=== PATIENT | female | born 1980 | race Caucasian/White ===

== ENCOUNTER → 2017-07-25 | Outpatient (CLI) | payer OTHER ==
[~2017-07-25] MED LIST: ACID CONTROL75 MG PO; ALBUTEROL2.5 MG/31 INH; AUGMENTIN 875875 MG PO; BENTYL 20 MG TA20 M1 PO; CALCIUM 500 +1 EAC5 PO; CALCIUM 600 +1 EAC1 PO; CEFPODOXIME PR200 M1 PO; CELEXA 20 MG TA20 M1 PO; CELEXA 20 MG TA20 MG PO; CLARITIN10 MG PO; CYCLOBENZAPRINE5 MG PO; FIBER TABS625 MG PO; HYDROCODON-ACE1 EAC7 PO; HYDROCODONE-IB1 EACH PO; IBUPROFEN 600600 M1 PO; IBUPROFEN 800800 M1 PO; IRON; IRON325 PO; MULTIVITAMINS1 EAC7; NORCO 5-325 TA1 EACH PO; ORTHO TRI-CYCL1 EACH PO; OXYCODONE HCL 55 MG PO; OXYCODONE HCL10 MG; OXYCONTIN10 M1 PO; PERI-COLACE TA1 EACH PO; PHENERGAN 25 MG25 M1 PO; PREDNISONE50 MG PO; PRILOSEC40 MG PO; PROTONIX40 M1 PO; PROVIDA OB CAP1 EACH PO; PULMICORT0.25 MG/3 INH; ROBAXIN 750 MG750 M1 PO; SINGULAIR 10 MG10 M1 PO; SYMBICORT160 MCG/4. INH; TESSALON PERLE100 MG PO; TRAMADOL 50 MG50 MG; TRI-SPRINTEC1 EACH PO; TUMS PO; UNICOMPLEX M TA1 TA1 PO; URSO FORTE500 M1 PO; URSODIOL300 MG PO; VALTREX1000 MG PO; VENTOLIN HFA INH8 GM INH; VICOPROFEN 2001 EAC1 PO; XANAX; XANAX 0.5 MG0.5 MG PO; ZANAFLEX4 MG PO; ZANTAC 150MG T150 M1 PO; ZYRTEC10 MG
[2017-07-25 08:18] LABS: ABSOLUTE BASOPHILS 0.2 thou/uL (0.0-0.2); ABSOLUTE LYMPHOCYTES 3.8 thou/uL (0.8-5.3); ABSOLUTE MONOCYTES 0.8 thou/uL (0.0-1.2); ABSOLUTE NEUTROPHILS 5.7 thou/uL (1.6-8.1); BASOPHILS 2.2 %; EOSINOPHILS 0.3 %; HEMATOCRIT 36.3 % (37.0-47.0); HEMOGLOBIN 11.9 gm/dL (12.0-15.0); LYMPHOCYTES 36.1 %; MCH 25.5 pg (26.0-34.0); MCHC 32.9 g/dL (28.0-37.0); MCV 77.7 fL (80.0-100.0); MONOCYTES 7.7 %; MPV 7.6 fl. (7.2-11.1); NUCLEATED RBCS 0 /100WBC; PLATELET COUNT* 305 thou/uL (150-400); POLYS 53.7 %; RBC 4.67 mil/uL (4.20-5.00); WBC 10.6 thou/uL (4.0-11.0)
[2017-07-25 08:35] LABS: ALBUMIN 3.5 g/dL (3.4-5.0); CALCIUM 8.5 mg/dL (8.5-10.1); CREATININE 0.9 mg/dL (0.6-1.3); POTASSIUM 3.1 mmol/L (3.5-5.1); TOTAL BILIRUBIN 0.1 mg/dL (<0.1-1.0); TOTAL PROTEIN 7.5 g/dL (6.4-8.2)
[2017-07-25 09:47] LABS: ESR (SEDRATE) 20 mm/hr (0-20)
== END ==
LOC: M.LAB 08:01
PROVIDERS: Internal Medicine Gastroenterology
DX: K74.3 Primary biliary cirrhosis (principal)

== ENCOUNTER 2017-11-24 03:56 | Emergency (ER) | payer OTHER ==
[~2017-11-24] VITALS: Ht 162.6 cm; Wt 117.9 kg
[~2017-11-24 03:56] MED LIST changes: -ALBUTEROL2.5 MG/31 INH; -CALCIUM 500 +1 EAC5 PO; -CEFPODOXIME PR200 M1 PO; -OXYCONTIN10 M1 PO; -PREDNISONE50 MG PO; -PROTONIX40 M1 PO; -PULMICORT0.25 MG/3 INH; -SYMBICORT160 MCG/4. INH; -TESSALON PERLE100 MG PO; -TUMS PO; -VALTREX1000 MG PO; -VENTOLIN HFA INH8 GM INH; -ZANAFLEX4 MG PO; -ZYRTEC10 MG
[2017-11-24] MEDS ORDERED: PULMICORT0.25 MG/3 INH (05:16)
[2017-11-24] MEDS ORDERED: PREDNISONE50 MG PO (05:16)
[2017-11-24 05:34] VITALS: BP 133/75
[2018-05-05] MEDS ORDERED: PROPRANOLOL 1010 MG PO (12:29)
== END 2017-11-24 05:35 | disposition home or self-care (01) ==
LOC: M.ERS 03:56
DX: J45.901 Unspecified asthma with (acute) exacerbation (principal); K21.9 Gastro-esophageal reflux disease without esophagitis; Z86.2 Personal history of diseases of the blood and blood-forming organs and certain disorders involving the immune mechanism; Z88.1 Allergy status to other antibiotic agents; Z88.6 Allergy status to analgesic agent; Z88.8 Allergy status to other drugs, medicaments and biological substances

== ENCOUNTER 2017-11-26 17:52 | Emergency (ER) | payer OTHER ==
[~2017-11-26] VITALS: Ht 162.6 cm; Wt 117.9 kg
[~2017-11-26 17:52] MED LIST changes: +PREDNISONE50 MG PO; +PULMICORT0.25 MG/3 INH
[2017-11-26] MEDS ORDERED: TUMS PO (18:04)
[2017-11-26] MEDS ORDERED: ALBUTEROL2.5 MG/31 INH (18:04)
[2017-11-26] MEDS ORDERED: VENTOLIN HFA INH8 GM INH (18:04)
[2017-11-26] MEDS ORDERED: CALCIUM 500 +1 EAC5 PO (18:05)
[2017-11-26 18:35] LABS: ABSOLUTE BASOPHILS 0.1 thou/uL (0.0-0.2); ABSOLUTE LYMPHOCYTES 1.7 thou/uL (0.8-5.3); ABSOLUTE MONOCYTES 0.3 thou/uL (0.0-1.2); ABSOLUTE NEUTROPHILS 8.7 thou/uL (1.6-8.1); BASOPHILS 0.6 %; HEMATOCRIT 33.8 % (37.0-47.0); HEMOGLOBIN 11.1 gm/dL (12.0-15.0); LYMPHOCYTES 16.1 %; MCH 25.9 pg (26.0-34.0); MCHC 32.9 g/dL (28.0-37.0); MCV 78.7 fL (80.0-100.0); MONOCYTES 2.5 %; MPV 8.1 fl. (7.2-11.1); NUCLEATED RBCS 0 /100WBC; PLATELET COUNT* 265 thou/uL (150-400); POLYS 80.8 %; RBC 4.29 mil/uL (4.20-5.00); RDW-CV 15.9 % (10.5-14.5); WBC 10.8 thou/uL (4.0-11.0)
[2017-11-26 18:37] LABS: URINE BILIRUBIN NEGATIVE (Negative); URINE BLOOD NEGATIVE (Negative); URINE CLARITY CLEAR; URINE COLOR YELLOW; URINE GLUCOSE-RANDOM NEGATIVE (Negative); URINE KETONES NEGATIVE (Negative); URINE LEUKOCYTES-REFLEX NEGATIVE (Negative); URINE NITRITE-REFLEX NEGATIVE (Negative); URINE PROTEIN NEGATIVE (Negative); URINE SPECIFIC GRAVITY <= 1.005 (1.005-1.030); URINE UROBILINOGEN 0.2 E.U./dl (0.2-1.0)
[2017-11-26 18:45] LABS: AMP/METHAMP Negative (Negative); ANION GAP 11 mmol/L (7-16); BARBITURATES Negative (Negative); BENZODIAZEPINES POSITIVE (Negative); BUN 12 mg/dL (7-18); CALCIUM 9.3 mg/dL (8.5-10.1); CHLORIDE 104 mmol/L (98-107); CO2 26 mmol/L (21-32); COCAINE Negative (Negative); CREATININE 0.9 mg/dL (0.6-1.3); GLUCOSE 126 mg/dL (70-99); METHADONE Negative (Negative); OPIATES Negative (Negative); PCP Negative (Negative); POTASSIUM 3.9 mmol/L (3.5-5.1); SODIUM 141 mmol/L (136-145); THC Negative (Negative)
[2017-11-26 18:49] LABS: APTT 24.7 Seconds (25.0-31.3); INR 1.1; PROTIME 10.3 Seconds (9.20-11.50)
[2017-11-26 18:52] LABS: ALBUMIN 3.5 g/dL (3.4-5.0); ALKALINE PHOSPHATASE 135 U/L (46-116); SGOT 52 U/L (15-37); SGPT 67 U/L (30-65); TOTAL BILIRUBIN 0.3 mg/dL (<0.1-1.0); TOTAL PROTEIN 7.7 g/dL (6.4-8.2); TROPONIN-I LEVEL <0.06 ng/mL (<0.06)
[2017-11-26] MEDS ORDERED: IBUPROFEN 800800 M1 PO (20:14)
[2017-11-26 20:21] VITALS: BP 144/77
--- NOTE | 2017-11-27 14:59 | EKG ---
[place] [address] ELECTROCARDIOGRAM REPORT Name: EDELMIRA NICHOLSON Room: [facility]#: [id number] Admission: 11/26/17 Attend Phys: Discharge: 11/26/17 Date of : 84 Report #: [id number] THIS REPORT FOR: //name// [facility] ED Test Date: 2017-11-26 Test Time: 17:58:07 Pat Name: EDELMIRA NICHOLSON Department: Room: Gender: F Inspector Wire Rope: JULIENNE : 1980 Requested By: Kianna Grimes Order Number: [id number] MD: Fredi Hartman Measurements Intervals [place] Rate: 55 P: 50 ID: [id number] QRS: 21 QRSD: 120 T: 17 QT: 428 QTc: 410 Interpretive Statements Sinus rhythm Nonspecific intraventricular conduction delay No previous ECG available for comparison Electronically Signed On 11-27-2017 14:59:10 CDT by Fredi Hartman [email or web address] <ELECTRONICALLY SIGNED> By: Fredi Hartman MD, [facility] 11/27/17 1459 1758 1758 Fredi Hartman MD, FACC /EPI
[2018-05-05] MEDS ORDERED: PROPRANOLOL 1010 MG PO (12:29)
== END 2017-11-26 20:22 | disposition home or self-care (01) ==
LOC: M.ERS 17:52
PROVIDERS: Nurse Practitioner Family
DX: R07.89 Other chest pain (principal); K21.9 Gastro-esophageal reflux disease without esophagitis; J45.909 Unspecified asthma, uncomplicated; Z86.2 Personal history of diseases of the blood and blood-forming organs and certain disorders involving the immune mechanism; Z88.8 Allergy status to other drugs, medicaments and biological substances; Z88.1 Allergy status to other antibiotic agents

== ENCOUNTER 2017-11-27 20:16 | Inpatient (IN) | payer OTHER ==
[~2017-11-27] VITALS: Ht 162.6 cm; Wt 129.3 kg
[~2017-11-27 20:16] MED LIST changes: +ALBUTEROL2.5 MG/31 INH; +CALCIUM 500 +1 EAC5 PO; +TUMS PO; +VENTOLIN HFA INH8 GM INH
[2017-11-27 20:28] VITALS: BP 172/98
[2017-11-27 21:23] LABS: HCO3 24.9 mmol/L (22.0-26.0); PCO2 33.4 mmHg (35.0-45.0); PO2 79.3 mmHg (75.0-100.0); pH 7.491 (7.340-7.450)
[2017-11-27 22:03] LABS: MAGNESIUM 1.9 mg/dL (1.8-2.4); TROPONIN-I LEVEL <0.06 ng/mL (<0.06)
[2017-11-27 23:30] VITALS: BP 175/88
[2017-11-27 23:45] VITALS: BP 170/85
[2017-11-28] MEDS ORDERED: SINGULAIR 10 MG10 M1 PO (00:07)
[2017-11-28] MEDS ORDERED: ZANAFLEX4 MG PO (00:08)
[2017-11-28 04:00] VITALS: BP 144/81
--- NOTE | 2017-11-28 05:20 | NUR ---
RECEIVED REPORT FROM KALYAN,RN AT 2345. PT ARRIVED FROM ER VIA GURNEY AT 2353. SPOUSE AT BEDSIDE. PT ORIENTED TO ROOM AND CALL LIGHT. VOICED NO CONCERNS THIS SHIFT. NURSING ASSESSMENT COMPLETED. PT EDUCATED ON IMPORTANCE OF BEING NPO FOR CARDIOLOGY CONSULT. PT VERBALIZED UNDERSTANDING. PT TRACING SB/SR THIS SHIFT WITH HR DROPPING DOWN TO LOW 40'S THIS SHIFT. HOURLY ROUNDING COMPLETED. CALL LIGHT WITHIN REACH.
--- NOTE | 2017-11-28 07:25 | NUR ---
CHANGE OF SHIFT BEDSIDE REPORT GIVEN PATIENT SEEN IN BED AND WATCHING TV ASSUMED PATIENT CARE
[2017-11-28 08:00] VITALS: BP 162/94
[2017-11-28 10:45] LABS: ABSOLUTE BASOPHILS 0.2 thou/uL (0.0-0.2); ABSOLUTE EOSINOPHILS 0.1 thou/uL (0.0-0.7); ABSOLUTE LYMPHOCYTES 3.7 thou/uL (0.8-5.3); ABSOLUTE NEUTROPHILS 8.7 thou/uL (1.6-8.1); BASOPHILS 1.3 %; EOSINOPHILS 0.4 %; HEMOGLOBIN 10.1 gm/dL (12.0-15.0); LYMPHOCYTES 27.2 %; MCH 25.9 pg (26.0-34.0); MCHC 32.4 g/dL (28.0-37.0); MCV 79.9 fL (80.0-100.0); MONOCYTES 7.5 %; MPV 8.7 fl. (7.2-11.1); NUCLEATED RBCS 0 /100WBC; PLATELET COUNT* 235 thou/uL (150-400); POLYS 63.6 %; RBC 3.88 mil/uL (4.20-5.00); RDW-CV 15.8 % (10.5-14.5); WBC 13.6 thou/uL (4.0-11.0)
[2017-11-28 10:54] LABS: ALBUMIN 3.1 g/dL (3.4-5.0); CALCIUM 8.3 mg/dL (8.5-10.1); CREATININE 0.9 mg/dL (0.6-1.3); POTASSIUM 3.5 mmol/L (3.5-5.1); TOTAL BILIRUBIN 0.3 mg/dL (<0.1-1.0); TOTAL PROTEIN 6.6 g/dL (6.4-8.2)
[2017-11-28 13:41] VITALS: BP 146/87
[2017-11-28 16:37] VITALS: BP 175/102
--- NOTE | 2017-11-28 16:38 | 2DMMODE ---
[place] [address] 2 D/M-MODE ECHOCARDIOGRAM Name: EDELMIRA NICHOLSON Room: [address] IN [facility]#: [id number] Admission: 11/28/17 Attend Phys: Unruly Flores Discharge: Date of : 84 Date of Service: 11/28/17 1638 Report #: [id number] THIS REPORT FOR: //name// APPROVED REPORT Study performed: 11/28/2017 11:00:25 EXAM: Comprehensive 2D, Doppler, and color-flow Echocardiogram Patient Location: In-Patient Room #: 230 Status: routine BSA: 2.25 HR: 59 bpm BP: 144/81 mmHg Rhythm: NSR Other Information Study Quality: Good Indications Bradycardia Chest Pain 2D Dimensions LVEF(%): 61.51 (>50%) IVSd: 12.80 (7-11mm) LVOT Diam: 19.99 (18-24mm) LVDd: 48.10 mm PWd: 10.53 (7-11mm) Ascending Ao: 31.07 (22-36mm) LVDs: 32.20 (25-40mm) Aortic Root: 28.26 mm Sauceda's LVEF: 61.51 % Volumes Left Atrial Volume (Systole) LA ESV Index: 34.70 mL/m2 Aortic Valve AoV Peak Matias.: 1.69 m/s AO Peak Gr.: 11.46 mmHg LVOT Max P.69 mmHg AO Mean Gr.: 6.11 mmHg LVOT Mean P.17 mmHg LVOT Max V: 1.63 m/s AO V2 VTI: 36.78 cm LVOT Mean V: 0.90 m/s ROLANDO (VTI): 2.75 cm2 LVOT V1 VTI: 32.23 [place] [address] 2 D/M-MODE ECHOCARDIOGRAM Name: EDELMIRA NICHOLSON Room: [address] IN ..#: [id number] Admission: 11/28/17 Attend Phys: Unruly Flores Discharge: Date of : 84 Date of Service: 11/28/17 1638 Report #: [id number] E/A Ratio: 1.44 MV Decel. Time: 169.92 ms MV E Max Matias.: 1.22 m/s MV PHT: 49.28 ms MVA (PHT): 4.46 cm2 TDI E/Lateral E': 8.13 E/Medial E': 10.17 Medial E' Matias.: 0.12 m/s Lateral E' Matias.: 0.15 m/s Pulmonary Valve PV Peak Matias.: 1.05 m/s PV Peak Gr.: 4.37 mmHg Tricuspid Valve TR Peak Gr.: 25.48 mmHg RVSP: 30.00 mmHg Left Ventricle The left ventricle is normal size. There is normal LV segmental wall motion. There is normal left ventricular wall thickness. Left ventricular systolic function is normal. The left ventricular ejection fraction is within the normal range. LVEF is 60%. The left ventricular diastolic function is normal. Right Ventricle The right ventricle is normal size. The right ventricular systolic function is normal. Atria The left atrium size is normal. The right atrium size is normal. Aortic Valve Mild aortic valve sclerosis. No aortic regurgitation is present. There is no aortic valvular stenosis. Mitral Valve The mitral valve is normal in structure. Trace mitral regurgitation. No evidence of mitral valve stenosis. Tricuspid Valve The tricuspid valve is normal in structure. Mild tricuspid regurgitation. The RVSP is 30-35 mmHg. Pulmonic Valve The pulmonary valve is normal in structure[place] [address] 2 D/M-MODE ECHOCARDIOGRAM Name: EDELMIRA NICHOLSON Room: [address] IN .#: [id number] Admission: 11/28/17 Attend Phys: Unruly Flores Discharge: Date of : 84 Date of Service: 11/28/17 1638 Report #: [id number] regurgitation. Great Vessels The aortic root is normal in size. IVC is normal in size and collapses with >50% inspiration Pericardium There is no pericardial effusion. <Conclusion> The left ventricle is normal size. There is normal left ventricular wall thickness. Left ventricular systolic function is normal. The left ventricular ejection fraction is within the normal range. LVEF is 60%. The left ventricular diastolic function is normal. The right ventricle is normal size. The left atrium size is normal. Mild aortic valve sclerosis. No aortic regurgitation is present. There is no aortic valvular stenosis. The mitral valve is normal in structure. Trace mitral regurgitation. The tricuspid valve is normal in structure. Mild tricuspid regurgitation. The RVSP is 30-35 mmHg. IVC is normal in size and collapses with >50% inspiration There is no pericardial effusion. There is normal LV segmental wall motion. <ELECTRONICALLY SIGNED> By: Fredi Hartman MD, FACC 11/28/17 1638 1638 1638 Fredi Hartman MD, FACC /INF
[2017-11-28 20:00] VITALS: BP 149/92
[2017-11-29] VITALS: BP 151/72
[2017-11-29 04:00] VITALS: BP 150/85
--- NOTE | 2017-11-29 04:07 | NUR ---
ASSUMED PT CARE AT 1930. NURSING ASSESSMENT COMPLETED AT START OF SHIFT. PT VOICED NO CONCERNS THIS SHIFT. PT TRACING SINUS RHYTHM/SINUS BRADICARDIA THIS SHIFT. PT HR DROPPED DOWN TO HIGH 30'S THIS SHIFT. PT ASLEEP DURING EVENT. PRN PAIN MEDICATION ADMINISTERED THIS SHIFT, SEE EMAR FOR DOCUMENTATION. PAIN MEDICATION EFFECTIVE. PT AMBULATED HALLWAY THIS SHIFT WITH NO SOA. HOURLY ROUNDING COMPLETED. CALL LIGHT WITHIN REACH.
[2017-11-29 05:25] LABS: HEMATOCRIT 33.6 % (37.0-47.0); HEMOGLOBIN 10.8 gm/dL (12.0-15.0); MCH 25.1 pg (26.0-34.0); MCV 78.3 fL (80.0-100.0); MPV 8.1 fl. (7.2-11.1); NUCLEATED RBCS 0 /100WBC; PLATELET COUNT* 294 thou/uL (150-400); RBC 4.29 mil/uL (4.20-5.00); RDW-CV 15.7 % (10.5-14.5); WBC 12.3 thou/uL (4.0-11.0)
[2017-11-29 05:44] LABS: CALCIUM 8.7 mg/dL (8.5-10.1); POTASSIUM 4.1 mmol/L (3.5-5.1)
[2017-11-29 07:26] LABS: ABSOLUTE LYMPHOCYTES 2.1 thou/uL (0.8-5.3); ABSOLUTE MONOCYTES 0.1 thou/uL (0.0-1.2); ABSOLUTE NEUTROPHILS 10.1 thou/uL (1.6-8.1); ANISOCYTOSIS 1+; PLATELET ESTIMATE ADEQUATE; POIKILOCYTOSIS 1+
[2017-11-29 08:00] VITALS: BP 124/73
[2017-11-29 11:34] VITALS: BP 147/76
--- NOTE | 2017-11-29 12:37 | EKG ---
[place] [address] ELECTROCARDIOGRAM REPORT Name: EDELMIRA NICHOLSON Room: [address] IN [facility].#: [id number] Admission: 11/28/17 Attend Phys: Reji Giordano Discharge: Date of : 84 Report #: [id number] THIS REPORT FOR: //name// [facility] ED Test Date: 2017-11-27 Test Time: 21:06:38 Pat Name: EDELMIRA NICHOLSON Department: Room: Gender: F Residential Treatment Staff: [place] : 1980 Requested By: Dana Mcrae Order Number: [id number] MD: Trey Mcmillan Measurements Intervals [place] Rate: 47 P: 38 [place]: 141 QRS: 3 QRSD: 108 T: 4 QT: 456 QTc: 404 Interpretive Statements Sinus bradycardia Borderline T abnormalities, diffuse leads Baseline wander in lead(s) V6 Compared to ECG 11/26/2017 17:58:07 no change Electronically Signed On 11-29-2017 12:37:28 CDT by Trey Mcmillan [email or web address] <ELECTRONICALLY SIGNED> By: Trey Mcmillan MD, [facility] 11/29/17 1237 05 05 Trey Mcmillan MD, [facility] /EPI
[2017-11-29 16:00] VITALS: BP 185/88
[2017-11-29 16:13] LABS: COMPLEMENT-C4 27 mg/dL (14-44)
[2017-11-29 20:00] VITALS: BP 169/97
[2017-11-30] VITALS: BP 147/87
[2017-11-30 04:00] VITALS: BP 130/76
--- NOTE | 2017-11-30 05:04 | NUR ---
ASSUMED PT CARE AT 1930, PT IS A&OX4, TRACING NSR ON THE MONITOR, ON RA SATTING MID TO HIGH 90'S. PT C/O A HEADACHE ONCE THIS SHIFT. PRN PAIN MEDICATIONS GIVEN PER AUG. BED IN LOW POSITION, CALL LIGHT IN REACH, PT IS UP AD NOLAN IN HER ROOM AND IS STABLE ON HER FEET. HOURLY ROUNDING COMPLETED FOR PT SAFETY.
[2017-11-30 08:00] VITALS: BP 126/80
[2017-11-30 11:52] VITALS: BP 159/83
[2017-11-30 16:15] VITALS: BP 161/99
--- NOTE | 2017-11-30 17:47 | NUR ---
ASSUMED CARE OF PT ASSESSED AND DOCUMENTED. SEE CHART. PT IS ON CARDIAC MONITER TRACING SR HR 61. SHE IS A&O. PAIN MEDICATION GIVEN X2 FOR BACK PAIN. VSS WNL. PT IS AFEBRILE. EDUCATION GIVEN ON DEMAND. HOURLY ROUNDING COMPLETE. PT REMAINS ON ROOM AIR.
[2017-11-30 20:00] VITALS: BP 151/79
[2017-12-01] VITALS (7 sets, daily range): BP systolic 143–172; BP diastolic 81–99
--- NOTE | 2017-12-01 03:30 | NUR ---
ASSUMED PT CARE AT 1930, PT IS A&OX4, TRACING NSR ON THE MONITOR, ON RA SATTING MID TO HIGH 90'S. PT DENIES ANY PAIN RO NEEDS AT THIS TIME. PT IS UP AD NOLAN IN HER ROOM AND IS STABLE ON HER FEET. BED IN LOW POSITION, CALL LIGHT IN REACH, HOURLY ROUNDING COMPLETED FOR PT SAFETY.
--- NOTE | 2017-12-01 08:00 | NUR ---
ASSUMED CARE OF PT ASSESSED AND DOCUMENTED. PT ON CARDIAC MONITER TRACING SR HR 85. PT IS A&O WITH NO C/O PAIN. VSS WNL. PT IS AFEBRILE. BED IS IN LOW POSITION CALL LIGHT IS IN REACH. WM.
[2017-12-01 09:12] LABS: ABSOLUTE BASOPHILS 0.1 thou/uL (0.0-0.2); ABSOLUTE LYMPHOCYTES 1.7 thou/uL (0.8-5.3); ABSOLUTE MONOCYTES 0.8 thou/uL (0.0-1.2); ABSOLUTE NEUTROPHILS 10.7 thou/uL (1.6-8.1); BASOPHILS 0.5 %; HEMATOCRIT 35.3 % (37.0-47.0); HEMOGLOBIN 11.3 gm/dL (12.0-15.0); LYMPHOCYTES 13.2 %; MCH 25.3 pg (26.0-34.0); MCHC 31.9 g/dL (28.0-37.0); MCV 79.2 fL (80.0-100.0); MONOCYTES 5.8 %; MPV 8.2 fl. (7.2-11.1); NUCLEATED RBCS 0 /100WBC; PLATELET COUNT* 329 thou/uL (150-400); POLYS 80.5 %; RBC 4.46 mil/uL (4.20-5.00); RDW-CV 15.6 % (10.5-14.5); WBC 13.3 thou/uL (4.0-11.0)
[2017-12-01 09:18] LABS: CALCIUM 8.7 mg/dL (8.5-10.1); CREATININE 0.8 mg/dL (0.6-1.3); POTASSIUM 4.1 mmol/L (3.5-5.1)
--- NOTE | 2017-12-01 17:26 | NUR ---
PT HAS RESTED IN HER ROOM AND WATCHED TV. IS AT BEDSIDE. PT IS PROBABLE FOR D/C TOMORROW. PT HAS HAD NO S OE SX OF ADVERSE REACTION TO ABT.
[2017-12-02 04:01] VITALS: BP 155/91
--- NOTE | 2017-12-02 05:13 | NUR ---
ASSUMED PT CARE AT 1930, PT IS A&OX4, PT IS TRACING NSR ON THE MONITOR, ON RA SATTING MID TO HIGH 90'S, PT DENIES ANY PAIN OR NEEDS. BED IN LOW POSITION, CALL LIGHT IN REACH, PT IS UP AD NOLAN IN HER ROOM AND IS STABLE ON HER FEET.
[2017-12-02 08:00] VITALS: BP 141/94
--- NOTE | 2017-12-02 10:19 | NUR ---
ASSUMED CARE OF PT THIS AM AROUND 0715- SUPERVISOR SAMPLE IN PLACE ORDERED, TRACING ST THIS AM- UPON ASSESSMENT PT NOTED TO BE RESTING IN BED, WATCHING TV- PT A&O X4- CONTINENT OF BOWEL AND BLADDER- UP AD-NOLAN IN ROOM WITH STEADY GAIT NOTED- LCTA, RESP EVEN AND UN-LABORED- PT REPORTS OCCASSIONAL SOA WITH ACTIVITY, BUT IMPROVED-VSS, O2 SAT 95% ON RA- ABDOMEN SOFT/ROUND/NON-TENDER, BS X4 QUADS- LAST BM REPORTED OVERNIGHT- IV TO RIGHT FA NOTED TO INFILTRATE WITH NEW 20 GAUGE PLACED TO LEFT FA THIS AM- IV ABT GIVEN PRESCIBED, NO ADVERSE REACTIONS TO NOTE- PAIN REPORTED TO COCCYX R/T REPORTED SHINGLES PER PT R/T HX- AWARE, PT REFUSES TO ALLOW STAFF TO SEE R/T IMBARRASSMENT WITH BEING CURRENT EMPLOYEE HERE- PRN OXY GIVEN AT 0913 PER PT REQUEST, PT REPORTS MEDICATION TO BE EFFECTIVE- GOOD PO INTAKE NOTED THIS AM WITH BREAKFAST- UP WALKLING HALLS THIS AM, TOLERATING WELL- CALL LIGHT AND PERSONAL BELONGINGS WITH IN REACH- ALL NEEDS MET AT THIS TIME- TM
--- NOTE | 2017-12-02 10:52 | CON ---
[address] [address] CONSULTATION Name: EDELMIRA NICHOLSON Room: [address] IN .R.#: [id number] Admission: 11/28/17 Attend Phys: Reji Giordano Discharge: Date of : 84 Report #: [id number] THIS REPORT FOR: //name// CC: Nadir Flores REASON FOR CONSULTATION: Asthma exacerbation. HISTORY OF PRESENT ILLNESS: This is a 37-year-old female patient who was diagnosed with asthma back in 2012. She told me she saw one of the doctors in our office and she told she would have asthma at that time. She was started on Singulair, although she tells me she had not been using it regularly. She estimated that she would use the rescue inhaler every 1 or 2 months in the last few years. Recently, she went to [place] for a visit. Before visit to [place], she started having nasal symptoms, runny nose with sore throat. She received a course of Augmentin and steroids and she felt better during the trip. When she came back, her symptoms came back with increasing wheezes, cough, shortness of breath, although she has no nasal discharge or sore throat. She was seen twice in the ER. Her chest x-ray was clear, but she had a CT of the chest that was negative for PE, but demonstrated some increased infiltrate at the bases. She denied any sick contact. She denied any specific exposure to dust or animals or plants during her visit. 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 She has a history of snoring and she feels fatigued, but she thinks it is related to her child care centre manager work. Also, during this hospitalization, she had some bradycardia and she is being evaluated by Cardiology. She has no nausea, no vomiting, no fever, no chills. Continues to be on room air. She has chronic back pain and she has history of primary biliary cirrhosis. ALLERGIES: LEVOFLOXACIN, SULFA, VENLAFAXINE AND TYLENOL. HOME MEDICATIONS: She is on alprazolam, iron supplement, albuterol HFA nebulization machine at home, Singulair and recently started on Symbicort just 3 days ago. PAST MEDICAL HISTORY: [place], reflux disease, anemia, ulcer, primary biliary cirrhosis, bone spur left heel, gastroparesis and asthma. PAST SURGICAL HISTORY: Tonsillectomy and gallbladder surgery. SOCIAL HISTORY: Does not smoke, does not drink alcohol, does not abuse drugs. FAMILY HISTORY: Reviewed with the patient, she thinks her mother has asthma. REVIEW OF SYSTEMS: She had no fever, no chills, no blurring of vision. She has no dysuria, frequency, urgency, depression. No bruising. No rash. The rest of the review [place] [address] CONSULTATION Name: EDELMIRA NICHOLSON Room: [address] IN [facility].#: [id number] Admission: 11/28/17 Attend Phys: Reji Giordano Discharge: Date of : 84 Report #: [id number] PHYSICAL EXAMINATION: VITAL SIGNS: On examination, she is on room air, blood pressure 124/73, breathing 19 times a minute, temperature 36.4, O2 saturation more than 90% and pulse rate of 68. GENERAL: Overweight lady, awake, alert, oriented, not in pain, not in distress. HEENT: Head normocephalic, atraumatic. Pupils reactive to light. External ear, looks healthy and normal. NECK: Supple. No palpable lymph node, no palpable thyroid. Trachea central. HEART: S1, S2. No murmurs. CHEST: Diminished air movement bilaterally, some faint end expiratory wheeze. CARDIOVASCULAR: S1, S2. No murmur. ABDOMEN: Benign, soft, lax, nontender. EXTREMITIES: Lower extremity trace edema, equal bilaterally. No calf tenderness. SKIN: Normal for age, no rash. PSYCHIATRIC: Mood and affect appropriate, calm and quiet. Good insight and judgment. NEUROLOGIC: Moving 4 extremities spontaneously. No focal weakness. LYMPHATICS: No palpable lymph nodes. LABORATORY DATA: Her recent chest x-rays were noted. She had a CT of the chest on 11/26/2017 that demonstrated no PE, but some mild bilateral infiltrates and possible small pleural effusion. During this hospital stay, she had an echocardiogram that demonstrated preserved EF and no diastolic dysfunction. IMPRESSION: 1. Asthma exacerbation. 2. Pulmonary infiltrate. 3. Pneumonia. 4. History of primary biliary cirrhosis. 5. Bradycardia. 6. Gastroesophageal reflux disease, on treatment. PLAN: 1. At this point, the patient will be continued on IV steroids. She is reporting improvement already after she received the IV steroids. Continue the antibiotics. Encouraged being out of bed and scheduled nebulization treatment. I did apprise counselor her about proper use of controlled medications in case of asthma. 2. Also, I did discuss with her. She may benefit from outpatient sleep study. She continues to have snoring and fatigue. [address] [address] CONSULTATION Name: EDELMIRA NICHOLSON Room: [address] IN [facility].#: [id number] Admission: 11/28/17 Attend Phys: Reji Giordano Discharge: Date of : 84 Report #: [id number] Thank you for the consult. We will follow along with you. <ELECTRONICALLY SIGNED> By: Genny Martin MD 12/02/17 1052 0938 1943Dcaitlyn Martin MD /lali
[2017-12-02] MEDS ORDERED: TESSALON PERLE100 MG PO (11:40)
[2017-12-02] MEDS ORDERED: PROTONIX40 M1 PO (11:42)
[2017-12-02] MEDS ORDERED: CEFPODOXIME PR200 M1 PO (11:47)
[2017-12-02] MEDS ORDERED: VALTREX1000 MG PO (11:48)
[2017-12-02] MEDS ORDERED: SYMBICORT160 MCG/4. INH (11:51)
[2017-12-02 11:53] VITALS: BP 141/94
[2017-12-02 12:05] LABS: B.burgdorf.IgG Negative (()); B.burgdorf.IgM Negative (())
--- NOTE | 2017-12-02 13:25 | NUR ---
ORDERS RECIEVED FOR OKAY FOR PT TO BE D/C'D TO HOME THIS SHIFT PER - IV TO LEFT FA D/C'D ALONG WITH NUCLEAR SPECTROSCOPIST PRIOR TO D/C- D/C TEACHING/EDUCATION GIVEN TO PT PRIOR TO D/C- WRITTEN EDUCATION GIVEN TO PT ALONG WITH SCRIPTS- ALL QUESTIONS AND CONCERNS ADDRESSED PRIOR TO D/C- BELONGINGS PACKED AND ACCOUNTED FOR PER PT AND SENT HOME AT TIME OF D/C- PT ESCORTED PER AMB PER TECH WITH BELONGINGS TO VEHICLE AT TIME OF D/C OF 1330- NO PROBLEMS TO NOTE AT TIME OF D/C
[2018-05-05] MEDS ORDERED: PROPRANOLOL 1010 MG PO (12:29)
== END 2017-12-02 13:28 | disposition home or self-care (01) | DRG 178 ==
LOC: M.ERS 20:16 → M.2W 23:12 → M.TBA-ER 23:12 → M.2W 23:53
PROVIDERS: Internal Medicine; Personal Emergency Response Attendant; ADMIT Internal Medicine
DX: J15.6 Pneumonia due to other Gram-negative bacteria (principal); J45.41 Moderate persistent asthma with (acute) exacerbation; I31.9 Disease of pericardium, unspecified; Z68.42 Body mass index [BMI] 45.0-49.9, adult; M54.9 Dorsalgia, unspecified; R00.1 Bradycardia, unspecified; E66.01 Morbid (severe) obesity due to excess calories; K21.9 Gastro-esophageal reflux disease without esophagitis; K31.84 Gastroparesis; K74.3 Primary biliary cirrhosis; G89.29 Other chronic pain; Z90.89 Acquired absence of other organs; Z79.899 Other long term (current) drug therapy; Z88.8 Allergy status to other drugs, medicaments and biological substances; Z88.2 Allergy status to sulfonamides

== ENCOUNTER → 2017-12-18 | Outpatient (CLI) | payer OTHER ==
[~2017-12-18] MED LIST changes: +CEFPODOXIME PR200 M1 PO; +HYDROCODONE-IB1 EAC3 PO; -OXYCODONE HCL10 MG; +OXYCODONE HCL10 MG PO; +OXYCONTIN10 M1 PO; +PROPRANOLOL 1010 MG PO; +PROTONIX40 M1 PO; +SYMBICORT160 MCG/4. INH; +TESSALON PERLE100 MG PO; +VALTREX1000 MG PO; +ZANAFLEX4 MG PO; +ZYRTEC10 MG PO
[2017-12-18 11:51] LABS: HEMATOCRIT 40.7 % (37.0-47.0); HEMOGLOBIN 13.6 gm/dL (12.0-15.0); MCH 26.4 pg (26.0-34.0); MCHC 33.4 g/dL (28.0-37.0); MCV 79.1 fL (80.0-100.0); MPV 7.3 fl. (7.2-11.1); RBC 5.14 mil/uL (4.20-5.00); RDW-CV 16.7 % (10.5-14.5); WBC 10.3 thou/uL (4.0-11.0)
[2017-12-18 12:09] LABS: ALBUMIN 3.5 g/dL (3.4-5.0); CALCIUM 9.7 mg/dL (8.5-10.1); CREATININE 0.9 mg/dL (0.6-1.3); POTASSIUM 4.4 mmol/L (3.5-5.1); TOTAL BILIRUBIN 0.6 mg/dL (<0.1-1.0); TOTAL PROTEIN 8.2 g/dL (6.4-8.2)
--- NOTE | 2017-12-20 12:06 | PF ---
[address] [address] PULMONARY FUNCTION REPORT Name: LYN,EDELMIRA M Room: [facility]#: [id number] Admission: 12/18/17 Attend Phys: Genny Martin MD Discharge: Date of : 84 Report #: [id number] THIS REPORT FOR: //name// CC: Genny Carreno INTERPRETATION: Expiratory flow rates are normal, the FEV1 at 2.95 liters with the forced vital capacity of 3.40. Both of these are well over 90% of the predicted value. Mid flows are within the normal range as well. There is no obvious improvement in the expiratory flow rates after inhaled bronchodilator. The lung volumes reveal a normal total lung capacity. Residual volume is reduced as is the RV/TLC ratio. The diffusion capacity is moderately reduced. IMPRESSION: 1. Exploratory flow rates are normal. No evidence of airflow obstruction. 2. Lung volumes are essentially normal with some concern of the RV and RV/TLC ratio being reduced. 3. Moderate reduction in the diffusion capacity. <ELECTRONICALLY SIGNED> By: Kaiden Glass MD 12/20/17 1206 1413 1545Alsummer Glass MD /nt
== END ==
LOC: M.PUL 12-13 13:00
PROVIDERS: Internal Medicine
DX: J18.8 Other pneumonia, unspecified organism (principal)

== ENCOUNTER 2018-04-04 23:02 | Emergency (ER) | payer OTHER ==
[~2018-04-04] VITALS: Ht 162.6 cm; Wt 122.5 kg
[~2018-04-04 23:02] MED LIST changes: -HYDROCODONE-IB1 EAC3 PO; +OXYCODONE HCL10 MG; -OXYCODONE HCL10 MG PO; -OXYCONTIN10 M1 PO; -PROPRANOLOL 1010 MG PO; -ZYRTEC10 MG PO
[2018-04-04 23:11] VITALS: BP 178/89
[2018-04-04] MEDS ORDERED: ZYRTEC10 MG (23:17)
[2018-04-04 23:56] LABS: URINE BILIRUBIN NEGATIVE (Negative); URINE BLOOD NEGATIVE (Negative); URINE CLARITY CLEAR; URINE COLOR YELLOW; URINE GLUCOSE-RANDOM NEGATIVE (Negative); URINE KETONES NEGATIVE (Negative); URINE LEUKOCYTES-REFLEX NEGATIVE (Negative); URINE NITRITE-REFLEX NEGATIVE (Negative); URINE PROTEIN NEGATIVE (Negative); URINE SPECIFIC GRAVITY 1.015 (1.005-1.030); URINE UROBILINOGEN 0.2 E.U./dl (0.2-1.0)
[2018-04-05] MEDS ORDERED: OXYCONTIN10 M1 PO (00:15)
== END 2018-04-05 00:26 | disposition home or self-care (01) ==
LOC: M.ERS 23:02
PROVIDERS: Emergency Medicine
DX: S33.9XXA Sprain of unspecified parts of lumbar spine and pelvis, initial encounter (principal); X58.XXXA Exposure to other specified factors, initial encounter; Y93.89 Activity, other specified; Y92.89 Other specified places as the place of occurrence of the external cause; Y99.8 Other external cause status; K21.9 Gastro-esophageal reflux disease without esophagitis; J45.909 Unspecified asthma, uncomplicated; Z90.49 Acquired absence of other specified parts of digestive tract; Z88.1 Allergy status to other antibiotic agents; Z88.2 Allergy status to sulfonamides

== ENCOUNTER 2018-04-25 19:46 | Emergency (ER) | payer OTHER ==
[~2018-04-25] VITALS: Ht 162.6 cm; Wt 122.5 kg
[~2018-04-25 19:46] MED LIST changes: +OXYCONTIN10 M1 PO; +ZYRTEC10 MG
[2018-04-25 20:22] LABS: URINE BLOOD NEGATIVE (Negative); URINE CLARITY CLEAR; URINE COLOR YELLOW; URINE GLUCOSE-RANDOM NEGATIVE (Negative); URINE KETONES NEGATIVE (Negative); URINE LEUKOCYTES-REFLEX NEGATIVE (Negative); URINE NITRITE-REFLEX NEGATIVE (Negative); URINE PROTEIN NEGATIVE (Negative); URINE SPECIFIC GRAVITY >= 1.030 (1.005-1.030)
[2018-04-25 20:23] LABS: ICTOTEST (BILI CONFIRMATORY) Positive (Negative); URINE BILIRUBIN 1+ (Negative)
[2018-04-25 20:33] LABS: BACTERIA-REFLEX 1-9 Few /HPF (None Seen); CASTS None Seen /LPF (None Seen); CRYSTALS None Seen /LPF (None Seen); MUCUS >6 Heavy strn/LPF (None Seen); SQUAMOUS >10 Many /LPF (0-3); URINE RBC 0-2 Rare /HPF (0-2); URINE WBC-REFLEX 0-5 Rare /HPF (0-5)
[2018-04-25] MEDS ORDERED: IBUPROFEN 800800 M1 PO (21:35)
[2018-04-25 21:43] VITALS: BP 127/61
== END 2018-04-25 21:43 | disposition home or self-care (01) ==
LOC: M.ERS 19:46
PROVIDERS: Nurse Practitioner Family
DX: S92.354A Nondisplaced fracture of fifth metatarsal bone, right foot, initial encounter for closed fracture (principal); K21.9 Gastro-esophageal reflux disease without esophagitis; J45.909 Unspecified asthma, uncomplicated; Z86.2 Personal history of diseases of the blood and blood-forming organs and certain disorders involving the immune mechanism; Z88.6 Allergy status to analgesic agent; Z88.2 Allergy status to sulfonamides; Z88.1 Allergy status to other antibiotic agents; Z88.8 Allergy status to other drugs, medicaments and biological substances; W01.0XXA Fall on same level from slipping, tripping and stumbling without subsequent striking against object, initial encounter; Y93.89 Activity, other specified; Y92.89 Other specified places as the place of occurrence of the external cause; Y99.8 Other external cause status

== ENCOUNTER 2018-05-06 11:29 | Observation (INO) | payer OTHER ==
[~2018-05-06] VITALS: Ht 162.6 cm; Wt 122.5 kg
[~2018-05-06 11:29] MED LIST changes: -OXYCODONE HCL10 MG; +OXYCODONE HCL10 MG PO; +PROPRANOLOL 1010 MG PO; -ZYRTEC10 MG; +ZYRTEC10 MG PO
[2018-05-06 11:54] LABS: HEMATOCRIT 39.5 % (37.0-47.0); HEMOGLOBIN 12.8 gm/dL (12.0-15.0)
[2018-05-06 12:05] LABS: CALCIUM 9.8 mg/dL (8.5-10.1); POTASSIUM 4.2 mmol/L (3.5-5.1)
[2018-05-06] MEDS ORDERED: HYDROCODONE-IB1 EAC3 PO (15:48)
[2018-05-07] VITALS: BP 131/76
[2018-05-07 04:00] VITALS: BP 109/57
--- NOTE | 2018-05-07 04:42 | NUR ---
PATIENT ARRIVED ON UNIT AT APPROX 2044. ALERT AND ORIENTED TIMES FOUR. ABLE TO MAINTAIN WEIGHT BEARING STATUS AND AMBULATE TO THE RESTROOM WITH ASSISST OF A WALKER. PATIENT HAS MINOR COMPLAINTS OF PAIN. CONTROLLED WITH ORAL PAIN MEDICATIONS. CONTINUOUS PULSE OX READING OVERNIGHT. MAINTAINED O2 SATS >95% THROUGH THE NIGHT. IV PATENT. DRESSING COVERING SURGICAL SITE C/D/I. VENEER TAPER AND HOURLY ROUNDING COMPLETED CHARTED.
[2018-05-07 08:19] VITALS: BP 124/77
[2018-05-07 09:44] LABS: ABSOLUTE BASOPHILS 0.1 thou/uL (0.0-0.2); ABSOLUTE LYMPHOCYTES 2.1 thou/uL (0.8-5.3); ABSOLUTE MONOCYTES 0.6 thou/uL (0.0-1.2); HEMATOCRIT 39.8 % (37.0-47.0); HEMOGLOBIN 12.8 gm/dL (12.0-15.0); LYMPHOCYTES 19.9 %; MCH 25.4 pg (26.0-34.0); MCHC 32.1 g/dL (28.0-37.0); MCV 79.2 fL (80.0-100.0); MONOCYTES 5.2 %; MPV 7.1 fl. (7.2-11.1); NUCLEATED RBCS 0 /100WBC; PLATELET COUNT* 403 thou/uL (150-400); POLYS 73.9 %; RBC 5.03 mil/uL (4.20-5.00); RDW-CV 15.7 % (10.5-14.5); WBC 10.8 thou/uL (4.0-11.0)
[2018-05-07 09:58] LABS: CALCIUM 9.9 mg/dL (8.5-10.1); CREATININE 1.1 mg/dL (0.6-1.3)
[2018-05-07 10:24] LABS: % SATURATION 12 % (20-39); IRON 52 ug/dL (50-175)
[2018-05-07 11:15] VITALS: BP 124/77
--- NOTE | 2018-05-07 12:34 | NUR ---
PT.HAS ORDER FOR FRONT WHEEL WALKER. FAXED FACE SHEET,ORDER AND OP REPORT TO [facility] [phone]. THEY WILL CHECK INSURANCE BENEFITS. THEY WILL DELIEVER TO PT.S HOSPITAL ROOM. SHE WAS ALSO INTERESTED IN KNEE SCOOTER INFORMATION. GAVE HER COSTS OF RENTING OR PURCHASING KNEE SCOOTER FROM [employer], ALONG WITH THEIR PHONE NUMBER AND ADDRESS. SHE COULD ALSO PURCHASE OFF [employer]. SHE WAS APPRECIATIVE OF THE INFORMATION.
--- NOTE | 2018-05-07 15:24 | NUR ---
PT DC HOME WITH WALKER. PT PAIN MANAGED WELL WITH ORDERED PAIN MEDICATIONS. PT WITH NO OTHER C/O. PT UP INDEPENDENTLY IN ROOM WITH WALKER. IV REMOVED INTACT BEFORE DISMISSAL. PT ACKNOWLEDGED DC INSTRUCTIONS AND MEDICATIONS.
--- NOTE | 2018-05-23 08:36 | OP ---
[address] [address] OPERATIVE REPORT Name: LYNEDELMIRA M Room: [address] [place]#: [id number] Admission: 05/07/18 Attend Phys: Afsaneh Ivey MD Discharge: 05/07/18 Date of : 84 Report #: [id number] THIS REPORT FOR: //name// CC: Meg Schmitz [facility] DICTATED BY: Luis Manuel Macario DO DATE OF SERVICE: 05/06/2018 PREOPERATIVE DIAGNOSIS: Right fifth metatarsal base fracture, zone 2. POSTOPERATIVE DIAGNOSIS: Right fifth metatarsal base fracture, zone 2. PROCEDURE PERFORMED: Open reduction and internal fixation right fifth metatarsal base fracture. IMPLANTS USED: Arthrex 5.5 mm partially threaded screw. SURGEON: Meg Cavazos DO. TELEVISION TECHNICIAN: Luis Manuel Macario DO ANESTHESIA: General and local. ESTIMATED BLOOD LOSS: 5 mL. SPECIMENS: None. COMPLICATIONS: None. TOURNIQUET: 32 minutes at 300 mmHg. ANTIBIOTICS: 2 grams Ancef IV preoperatively. CONDITION: The patient stable to PACU. INDICATIONS FOR PROCEDURE: This is a pleasant 38-year-old female who had a twisting injury to the right foot approximately 1 week ago. She was initially seen in the Emergency Department where radiographs demonstrated a fracture of the base of the fifth metatarsal. She was then seen and evaluated in the Orthopedic Clinic. Radiographs demonstrated a zone 2 metatarsal base fracture. Both nonoperative and operative treatment was discussed in detail with the patient and ultimately it was recommended that she undergo open reduction and internal fixation of the fracture. The patient wished to proceed with this. The risks, benefits, alternatives [place] [address] OPERATIVE REPORT Name: EDELMIRA NICHOLSON Room: [address] Nubia Vazquez#: [id number] Admission: 05/07/18 Attend Phys: Afsaneh Ivey MD Discharge: 05/07/18 Date of : 84 Report #: [id number] patient was in agreement to proceed. DESCRIPTION OF PROCEDURE: The patient was seen and examined in the preoperative holding area. The correct operative extremity was marked by the operating surgeon. Written consent was signed and obtained for the procedure. The patient was then transferred to the operating room and placed supine on the operating room table. She was given the benefit of general anesthesia. She was then placed in the left lateral decubitus position and was well padded and secured utilizing the beanbag on the operating room table. A well-padded tourniquet was then placed to the right thigh. The right lower extremity was prepped and draped in the usual sterile fashion. Timeout was performed to verify the correct patient, procedure and operative extremity and all were in agreement. The right lower extremity was prepped and draped in the usual sterile fashion. The right lower extremity was then exsanguinated using the Esmarch and the tourniquet was inflated to 300 mmHg, which remained inflated for the duration of the procedure, which was 32 minutes. Next, the fracture site was localized using fluoroscopic guidance. Approximately 3 cm incision was made just proximal to the base of the fifth metatarsal. Blunt dissection was carried down to the fifth metatarsal base. Utilizing fluoroscopy, a smooth guidewire was inserted into the fifth metatarsal. This was confirmed to be at the appropriate starting point and centered in the canal on AP, lateral, and oblique radiographs. Next, the fifth metatarsal was drilled utilizing a cannulated drill bit over the guidewire. This was then tapped for a 5.5 mm screw. Utilizing fluoroscopy and the depth gauge on the tap, the screw was appropriately sized to 45 mm. Next, the tap was removed and the 5.5 mm partially threaded solid screw was inserted into the fifth metatarsal base. There was noted to be excellent compression across the fracture site on fluoroscopy. Final radiographs were then taken and verified appropriate reduction and position of the partially threaded screw. The incision was then thoroughly irrigated with normal saline and closed with 2-0 Vicryl in a simple inverted interrupted fashion for deep layer and a running 3-0 nylon on the skin. Approximately 25 mL of mixture of lidocaine and Marcaine was injected locally around the incision. Next, a sterile dressing of Xeroform, 4 x 4's, ABD and soft roll was applied to the right lower extremity. The tourniquet was then deflated. A posterior plaster splint was then applied to the right lower extremity. The patient was awakened from anesthesia and transferred to the PACU in stable condition. She tolerated the procedure well. There were no complications. Needle and sponge counts were correct x 2. POSTOPERATIVE PLAN: The patient will be discharged home from the PACU when alert and stable. We will have her maintain nonweightbearing to the right lower extremity and to maintain the splint until followup. We will have her follow up [address] [address] OPERATIVE REPORT Name: EDELMIRA NICHOLSON Room: [address] Nubia Vazquez#: [id number] Admission: 05/07/18 Attend Phys: Afsaneh Ivey MD Discharge: 05/07/18 Date of : 84 Report #: [id number] in the Orthopedic Clinic in 1 week for a wound check. We anticipate her transitioning into a Cam boot at that time. <ELECTRONICALLY SIGNED> By: Meg Cavazos DO 05/23/18 0836 1501 1529Atorie Cavazos DO /nt
== END 2018-05-07 15:23 | disposition home or self-care (01) ==
LOC: M.ORTHSURG 11:29 → M.SUR 11:29 → M.ORTHSURG 19:16 → M.SUR 19:16 → M.ORTHSURG 05-07 08:43 → M.SUR 05-07 08:43 → M.ORTHSURG 05-07 08:43
PROVIDERS: Orthopaedic Surgery; ADMIT Family Medicine
DX: S92.351A Displaced fracture of fifth metatarsal bone, right foot, initial encounter for closed fracture (principal); J96.01 Acute respiratory failure with hypoxia; J45.909 Unspecified asthma, uncomplicated; G47.33 Obstructive sleep apnea (adult) (pediatric); K21.9 Gastro-esophageal reflux disease without esophagitis; K74.3 Primary biliary cirrhosis; E66.2 Morbid (severe) obesity with alveolar hypoventilation; E66.9 Obesity, unspecified; X58.XXXA Exposure to other specified factors, initial encounter; Y93.89 Activity, other specified; Y92.89 Other specified places as the place of occurrence of the external cause; Y99.8 Other external cause status; Z98.890 Other specified postprocedural states; Z79.899 Other long term (current) drug therapy

== ENCOUNTER 2018-08-08 19:35 | Emergency (ER) | payer OTHER ==
[~2018-08-08] VITALS: Ht 162.6 cm; Wt 124.7 kg
[~2018-08-08 19:35] MED LIST changes: +HYDROCODONE-IB1 EAC3 PO
[2018-08-08 21:37] LABS: URINE BILIRUBIN NEGATIVE (Negative); URINE BLOOD 2+ (Negative); URINE CLARITY CLEAR; URINE COLOR YELLOW; URINE GLUCOSE-RANDOM NEGATIVE (Negative); URINE KETONES NEGATIVE (Negative); URINE LEUKOCYTES-REFLEX NEGATIVE (Negative); URINE NITRITE-REFLEX NEGATIVE (Negative); URINE PROTEIN NEGATIVE (Negative); URINE SPECIFIC GRAVITY 1.025 (1.005-1.030); URINE UROBILINOGEN 0.2 E.U./dl (0.2-1.0)
[2018-08-08 21:40] LABS: ABSOLUTE BASOPHILS 0.2 thou/uL (0.0-0.2); ABSOLUTE EOSINOPHILS 0.1 thou/uL (0.0-0.7); ABSOLUTE MONOCYTES 0.8 thou/uL (0.0-1.2); BASOPHILS 1.3 %; EOSINOPHILS 0.6 %; HEMATOCRIT 40.1 % (37.0-47.0); HEMOGLOBIN 12.9 gm/dL (12.0-15.0); LYMPHOCYTES 21.4 %; MCH 25.1 pg (26.0-34.0); MCHC 32.3 g/dL (28.0-37.0); MCV 77.9 fL (80.0-100.0); MONOCYTES 5.8 %; MPV 7.7 fl. (7.2-11.1); NUCLEATED RBCS 0 /100WBC; PLATELET COUNT* 371 thou/uL (150-400); POLYS 70.9 %; RBC 5.15 mil/uL (4.20-5.00); RDW-CV 15.5 % (10.5-14.5); WBC 14.1 thou/uL (4.0-11.0)
[2018-08-08 21:52] LABS: BACTERIA-REFLEX None Seen /HPF (None Seen); CASTS None Seen /LPF (None Seen); CRYSTALS None Seen /LPF (None Seen); SQUAMOUS 0-3 Few /LPF (0-3); URINE RBC None Seen /HPF (0-2); URINE WBC-REFLEX None Seen /HPF (0-5)
[2018-08-08 21:58] LABS: ALBUMIN 3.7 g/dL (3.4-5.0); CALCIUM 9.1 mg/dL (8.5-10.1); POTASSIUM 3.9 mmol/L (3.5-5.1); TOTAL BILIRUBIN 0.2 mg/dL (<0.1-1.0); TOTAL PROTEIN 8.3 g/dL (6.4-8.2)
[2018-08-09 00:30] VITALS: BP 156/78
== END 2018-08-09 00:30 | disposition home or self-care (01) ==
LOC: M.ERS 19:35
PROVIDERS: Physician Assistant
DX: K43.9 Ventral hernia without obstruction or gangrene (principal); Z88.1 Allergy status to other antibiotic agents; Z88.2 Allergy status to sulfonamides; Z88.8 Allergy status to other drugs, medicaments and biological substances; Z88.6 Allergy status to analgesic agent; Z90.49 Acquired absence of other specified parts of digestive tract

== ENCOUNTER 2018-08-27 12:01 | Inpatient (IN) | payer OTHER ==
[~2018-08-27] VITALS: Ht 162.6 cm; Wt 125.6 kg
--- NOTE | ~2018-08-27 | H ---
[address] [address] HISTORY AND PHYSICAL Name: EDELMIRA NICHOLSON Room: [address] IN ..#: [id number] Admission: 08/27/18 Attend Phys: Nay Lew DO Discharge: 08/28/18 Date of : 84 Report #: [id number] THIS REPORT FOR: //name// Please refer to the History and Physical performed in the physician's office. By: [id number] Records Staff MARGARETH /JULIENNE
[2018-08-27 12:31] LABS: HEMATOCRIT 32.9 % (37.0-47.0); HEMOGLOBIN 10.8 gm/dL (12.0-15.0); MCH 25.6 pg (26.0-34.0); MCHC 32.8 g/dL (28.0-37.0); MPV 7.5 fl. (7.2-11.1); RBC 4.22 mil/uL (4.20-5.00); RDW-CV 15.7 % (10.5-14.5); WBC 6.8 thou/uL (4.0-11.0)
[2018-08-27 12:45] VITALS: BP 131/75
[2018-08-27 12:47] LABS: ALBUMIN 3.1 g/dL (3.4-5.0); CALCIUM 8.8 mg/dL (8.5-10.1); CREATININE 1.1 mg/dL (0.6-1.3); POTASSIUM 3.5 mmol/L (3.5-5.1); TOTAL BILIRUBIN 0.4 mg/dL (<0.1-1.0); TOTAL PROTEIN 6.6 g/dL (6.4-8.2)
[2018-08-27 16:53] VITALS: BP 131/70
[2018-08-27 17:22] VITALS: BP 131/70
--- NOTE | 2018-08-27 18:15 | NUR ---
PATIENT ARRIVED TO UNIT AT APPROX 1700. ALERT AND OREINTED X4. ASSESSMENT COMPLETED AND CHARTED. VSS ON 2 LITERS. NO COMPLAINTS OF PAIN, NAUSEA, OR SOA. PATIENT REMOVED FROM AND WILL REASSESS 02 STATUS. PER SURGERY, PATIENT CAN GO HOME IF VITALS REMAIN STABLE ON ROOM AIR. HOURLY ROUNDS COMPLETED. CALL LIGHT WITHIN REACH. NURSING WILL CONTINUE TO MONITOR.
--- NOTE | 2018-08-27 19:52 | NUR ---
CHECKED PATIENTS 02 SAT ON ROOM AIR. UPON ENTERING ROOM, END TITLE READ 93%, I APPROACHED THE PATIENT SHE BEGAN WATCHING THE END TITLE AND HOLDING HER BREATH UNTIL HER SAT DROPPED DOWN TO 85%. I PLACED HER OXYGEN BACK ON HER AT 2 LITERS AND NOTIFIED SURGERY TO RESTART HER HOME MEDS SO SHE CAN STAY THE NIGHT.
[2018-08-27 20:00] VITALS: BP 139/77
[2018-08-28] VITALS: BP 149/83
--- NOTE | 2018-08-28 01:21 | NUR ---
THIS NURSE ASSUMES CARE OF PT 08/27/18 AT 2000, PT IS ALERT AND ORIENTED X4, PT WALKING IN HALLS WITH WITHOUT DIFFICULTY, PTS PAIN CONTROLLED WITH PO PAIN MEDS, SURGEON CONTACTED ABOUT PT CONCERN OF DESAT TO 88-89% WHEN RESTING IN BED, PT O2 SAT IS 95-97% WHEN AWAKE AND TALKING TO THIS NURSE, LOWER LEFT LUNG SOUNDS DIMINISHED, NO WHEEZING, NO SOA REPORTED, PRN BTX ORDERED NOT TO GIVE UNLESS PT IS SOA OR WHEEZING, PT DECIDES TO STAY OVERNIGHT FOR OBSERVATION, NO S/S ACUTE DISTRESS NOTED, CONTINUOUS O2 MONITORING IN PLACE, REPORT GIVEN TO ZHENG ROLON [id number]
[2018-08-28 04:00] VITALS: BP 140/82
--- NOTE | 2018-08-28 05:29 | NUR ---
PATIENT REMAINS ALERT AND ORIENTED TIMES FOUR. UP AD NOLAN. COMPLAINTS OF PAIN. MANAGED WITH IV MEDICATION. HOURLY ROUNDING COMPLETED CHARTED
[2018-08-28 08:13] VITALS: BP 131/89
--- NOTE | 2018-08-28 14:00 | NUR ---
BREANA ISRAEL, AND MYSELF WENT TO PT ROOM, DID FULL ASSESSMENT ON THE PT. LUNGS CLR, HEART SOUNDS NORMAL, BOWELS ACTIVE. INCISION CLEAN, DRY, INTACT. CALL LIGHT WITHIN REACH. WILL CONTINUE TO MONITOR.
[2018-08-28 18:00] VITALS: BP 131/70
--- NOTE | 2018-08-28 18:01 | NUR ---
PATIENT LEFT UNIT AT 1630 WITH NURSING STAFF, AMBULATORY. IV DC'D. EDUCATED PATIENT ON NEW MED SCRIPTS AND DISCHARGE INSTRUCTIONS. PATIENT VERBALIZED UNDERSTANDING. ALL BELONGINGS LEFT WITH PATIENT.
--- NOTE | 2018-09-02 12:05 | PATH ---
[address] [address] PATHOLOGY RPT PROCEDURE Name: MONSERRAT NICHOLSON Room: [address] IN .R.#: [id number] Admission: 08/27/18 Date of : 84 Discharge: 08/28/18 Report #: [id number] Path Case #: [id number] [facility] Accession Number: [id number] . 01 Material submitted: . HERNIA SAC . 01 Clinical history: . Biliary cirrhosis, incisional hernia . 02 Diagnosis: Hernia sac: - Benign fibromembranous / fibrofatty tissue. . (MONY:mml; 08/29/2018) QLM/08/29/2018 . 02 Electronically signed: . Leonardo Watt MD, Pathologist NPI- [id number] . 01 Gross description: . Received in formalin labeled "Monserrat Nicholson, hernia sac," are two segments of yellow-brown fibroadipose tissue admixed with jamil-reich fibromembranous tissue measuring 1.7 x 1.6 x 0.4 cm and 3.4 x 3.3 x 1.7 cm in greatest dimensions. Sectioning through both segments reveals pale yellow to jamil-reich cut surfaces, with no lesions or nodules identified grossly. Both segments are submitted representatively in cassette A1. (DAC; 08/28/2018) XDC/XDC . 02 Pathologist provided ICD-10: K43.2 . 02 CPT . 035021 Specimen Comment: A courtesy copy of this report has been sent to Specimen Comment: [phone], . Specimen Comment: Report sent to / DR HODGE Specimen Comment: A duplicate report has been generated due to demographic updates. Performed at: [address] [id number] MD Agustin Greer MD Phone: [phone] Performed at: [address] [id number] [address] [address] PATHOLOGY RPT PROCEDURE Name: MONSERRAT NICHOLSON Room: [address] DIS IN M.R.#: [id number] Admission: 08/27/18 Date of : 84 Discharge: 08/28/18 Report #: [id number] Path Case #: [id number] MD Leonardo Watt MD Phone: [phone]
--- NOTE | 2018-09-03 12:55 | OP ---
[address] [address] OPERATIVE REPORT Name: EDELMIRA NICHOLSON Room: [address] IN M.R.#: [id number] Admission: 08/27/18 Attend Phys: Nay Lew DO Discharge: 08/28/18 Date of : 84 Report #: [id number] THIS REPORT FOR: //name// CC: Nay Rai DICTATED BY: Shin Kumari DO DATE OF SERVICE: 08/27/2018 This is Shin Kumari DO, PGY-2 dictating for Nay Lew DO. PREOPERATIVE DIAGNOSIS: Incisional hernia. POSTOPERATIVE DIAGNOSIS: Incisional hernia. FINDINGS: A 3 x 2 cm incisional hernia above the umbilicus containing fat. SURGEON: Nay Lew DO. COSURGEON: Shin Kumari DO, PGY-2. [employer]: Harman See MS3. OPERATION PERFORMED: Incisional hernia repair with mesh. ANESTHESIA: General and local. ESTIMATED BLOOD LOSS: 10 mL. SPECIMEN REMOVED: Hernia sac. COMPLICATIONS: None. IMPLANTS: Medium round Ventralex ST hernia mesh. CONDITION: Stable. DISPOSITION: PACU to home. INDICATION FOR PROCEDURE: The patient is a pleasant 38-year-old female who presented to the office with chief complaint of incisional hernia after laparoscopic cholecystectomy and liver biopsy, recommended incisional hernia repair with mesh. Full discussion of procedure, alternatives, risks and possible complications to include but not limited to bleeding, infection, postoperative pain, scarring, recurrence of hernia, need for further surgery, [place] [address] OPERATIVE REPORT Name: EDELMIRA NICHOLSON Room: [address] IN [facility].#: [id number] Admission: 08/27/18 Attend Phys: Nay Lew DO Discharge: 08/28/18 Date of : 84 Report #: [id number] mesh complications and anesthesia risks. The patient was understanding of these risks and agreed to proceed with surgery. TECHNIQUE: The patient was again seen and examined preop holding. Fully informed written consent was obtained. Full discussion again of procedure, alternatives, risks and possible complications, the patient again was understanding risks and agreed to proceed with surgery. PREOPERATIVE ANTIBIOTICS: 2 grams Ancef were given. DESCRIPTION OF PROCEDURE: The patient was subsequently transported to the operating room suite and placed on the operating table in a supine position. At this time, anesthesia induced, general anesthesia was successful. Bilateral lower extremity SCDs were placed to the patient's calves. Grounding pad was placed to right lateral thigh. The patient's arms were placed on arm boards. All extremities and joints were padded and protected. The patient was prepped and draped using standard sterile fashion. Time-out was performed prior to the onset of procedure. We began by making a vertical incision superior to the umbilicus in the exact location of her previous laparoscopic incisional scar, dissected down through dermal and subcutaneous tissue until a hernia sac was located in the mid portion of the incision. Hernia sac was dissected circumferentially using blunt electrocautery to the fascial edges. Hernia sac was ligated and passed off to be sent to pathology. Hernia was fat containing and this was reduced back into the abdomen. Abdominal adhesions were taken down using electrocautery. Of note, once adhesions were taken down, there was noted to be another small defect inferior to the larger defect at the inferior portion of the prior incision. Fascia was transected to include both hernia defects together. The defect measured 3 x 2 cm. At this time, a medium Ventralex ST hernia mesh was brought into the field, soaked in normal saline and placed as an underlay into the abdomen. 0 Prolene sutures were used to suture the mesh into place at both the superior, inferior and lateral borders of the mesh. Once this was performed, additional 0 Prolene interrupted [id number] sutures were used to close a fascial defect over the hernia mesh with mesh incorporated in the closure. Once this was performed, 10 mL of 0.5% Marcaine was injected into the fascia for local anesthetic. A layered closure was then performed, 3-0 Vicryl interrupted sutures were used to close the subcutaneous and deep dermal layers. A running 4-0 Monocryl was used to close the skin. An additional 20 mL of 0.5% Marcaine was used for local anesthetic in the dermal region. Abdomen was cleansed using wet and dry lap. Sterile dressing was applied. Mastisol, Steri-Strips, 4 x 4's, Tegaderm, abdominal binder. The patient was extubated in the operating room and transferred to PACU in stable condition after a brief [place] [address] OPERATIVE REPORT Name: EDELMIRA NICHOLSON Room: [address] IN M.R.#: [id number] Admission: 08/27/18 Attend Phys: Nay Lew DO Discharge: 08/28/18 Date of : 84 Report #: [id number] PLAN: To discharge home. Follow up in the office with Dr. Lew in 1 week. <ELECTRONICALLY SIGNED> By: Nay Lew DO 09/03/18 1255 [id number] 1510Chrisryley Lew DO /nt
== END 2018-08-28 18:06 | disposition home or self-care (01) | DRG 355 ==
LOC: M.SUR 12:01 → M.ORTHSURG 16:00
PROVIDERS: ADMIT Surgery
PROC: 0WUF0JZ Supplement Abdominal Wall with Synthetic Substitute, Open Approach (ICD-10-PCS; principal; 2018-08-27)
DX: K43.2 Incisional hernia without obstruction or gangrene (principal); R09.02 Hypoxemia; K21.9 Gastro-esophageal reflux disease without esophagitis; J45.909 Unspecified asthma, uncomplicated; Z83.49 Family history of other endocrine, nutritional and metabolic diseases; Z79.899 Other long term (current) drug therapy; Z88.1 Allergy status to other antibiotic agents; Z88.2 Allergy status to sulfonamides; Z88.8 Allergy status to other drugs, medicaments and biological substances